=== PATIENT | male | born 1935 | race Caucasian/White ===

== ENCOUNTER → 2017-04-08 | Day surgery (SDC) | payer OTHER | END | disposition home or self-care (01) | LOC: FAS 08:40 | DX: K29.50 Unspecified chronic gastritis without bleeding (principal); K64.8 Other hemorrhoids; K21.9 Gastro-esophageal reflux disease without esophagitis; M19.90 Unspecified osteoarthritis, unspecified site; J44.9 Chronic obstructive pulmonary disease, unspecified; E78.00 Pure hypercholesterolemia, unspecified; Z98.41 Cataract extraction status, right eye; Z98.42 Cataract extraction status, left eye; Z87.891 Personal history of nicotine dependence; Z79.899 Other long term (current) drug therapy; Z98.890 Other specified postprocedural states; Z80.0 Family history of malignant neoplasm of digestive organs | CPT/HCPCS: 36415; 84443; 88305; J2704 ==